=== PATIENT | male | born 1985 | race American Indian/Alaskan Native ===

== ENCOUNTER 2017-07-19 00:01 | Emergency (ER) | payer MEDICAID ==
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
[2017-07-19] MEDS ORDERED: CLEOCIN IM ONE (08:26)
[2017-07-19] MEDS ORDERED: BOOSTRIX IM ONE (08:26)
[2017-07-19] MEDS ORDERED: NACL 0.9% IR ONE ×2 (08:26→10:37)
[2017-07-19] MEDS ORDERED: NORCO 7.5/325 PO ONE (08:26)
[2017-07-19] MEDS ORDERED: MARCAINE 0.5% INFILTRATI ONE (08:26)
[2017-07-19] MEDS ORDERED: NACL 0.9% 500 ML IR ONE (10:34)
[2017-07-19] MEDS ORDERED: MOTRIN ONE (10:36)
[2017-07-19] MEDS ORDERED: MOTRIN PO ONE (10:37)
[2017-07-19] MEDS ORDERED: TRIPLE ANTIBIOTIC TP ONE ×3 (10:49→10:51)
[2017-07-19] MEDS ORDERED: ROCEPHIN IM ONE (10:56)
[2017-07-19] MEDS ORDERED: XYLOCAINE 1% MPF 5 mL ONE (10:57)
[2017-07-19] MEDS ORDERED: ROCEPHIN IM STA (11:22)
[2017-07-19] MEDS ORDERED: XYLOCAINE 1% MPF 5 mL INFILTRATI ONE (11:22)
[2017-07-19 11:45] VITALS: BP 130/80
== END 2017-07-19 11:43 | disposition home or self-care (01) ==
LOC: ED 00:01
DX: S01.311A Laceration without foreign body of right ear, initial encounter (principal); S10.91XA Abrasion of unspecified part of neck, initial encounter; Y04.1XXA Assault by human bite, initial encounter; Y93.89 Activity, other specified; Y92.89 Other specified places as the place of occurrence of the external cause; Y99.8 Other external cause status
CPT/HCPCS: 12011; 90471; 90715; 96372; 99282; J0696; A6250

== ENCOUNTER 2017-07-21 11:10 | Emergency (ER) | payer MEDICAID ==
[2017-07-21 11:43] VITALS: BP 131/89
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
== END 2017-07-21 12:55 | disposition home or self-care (01) ==
LOC: ED 11:10
DX: Z48.02 Encounter for removal of sutures (principal)

== ENCOUNTER 2017-07-26 10:06 | Emergency (ER) | payer MEDICAID ==
[2017-07-26 10:12] VITALS: BP 129/90
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
[2017-07-26] MEDS ORDERED: HYDROGEN PEROXIDE ONE (11:57)
--- NOTE | 2017-07-26 12:02 | Emergency Department Report ---
Chief Complaint: Laceration/Recheck/Suture Stated Complaint: SUTURE REMOVAL Time Seen by Provider: 07/26/17 11:49 - HPI History of Present Illness: Pt is a 31 yo male who is here for suture removal of right ear sutures x 1 week . Pt states that his has been putting liquid bandaid on it. Pt states that he has had some bleeding that has been controlled. - ROS Review of Systems: Pe: right ear sutures intact of right ear; no active bleeding - Exam Vital Signs: Vital Signs 07/26/17 10:10 Temperature 98.4 F Pulse Rate 84 Respiratory 18 Rate Blood Pressure 129/90 O2 Sat by Pulse 99 Oximetry MSE screening note: Focused history and physical exam performed. Due to findings the following was ordered: sutures will be removed ED Disposition for MSE Condition: Stable Referrals: PRIMARY CARE, [Primary Care Provider] - 3-5 Days
[2017-07-26] MEDS ORDERED: HYDROGEN PEROXIDE TP ONE (12:10)
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
== END 2017-07-26 14:42 | disposition home or self-care (01) ==
LOC: ED 10:06
DX: S01.311D Laceration without foreign body of right ear, subsequent encounter (principal); X58.XXXD Exposure to other specified factors, subsequent encounter
CPT/HCPCS: 99282